=== PATIENT | male | born 1965 | race Caucasian/White ===

== ENCOUNTER 2017-06-23 18:22 | Emergency (ER) | payer BC ==
[~2017-06-23] VITALS: Ht 175.3 cm; Wt 120.2 kg
[2017-06-23] MEDS ORDERED: WELLBUTRIN XL300 MG PO (18:45)
[2017-06-23] MEDS ORDERED: ZANTAC 150MG T150 MG PO (18:45)
[2017-06-23] MEDS ORDERED: BENICAR20 MG PO (18:45)
[2017-06-23] MEDS ORDERED: JANUMET 50-1,01 EACH PO (18:46)
[2017-06-23] MEDS ORDERED: GLIPIZIDE 10 MG10 MG PO (18:46)
[2017-06-23] MEDS ORDERED: VITAMIN D3400 UNIT PO (18:46)
[2017-06-23] MEDS ORDERED: TRAZODONE HCL100 MG PO (18:46)
[2017-06-23] MEDS ORDERED: JARDIANCE10 MG PO (18:46)
[2017-06-23 19:46] VITALS: BP 133/79
== END 2017-06-23 19:47 | disposition home or self-care (01) ==
LOC: M.ERS 18:22
DX: S61.212A Laceration without foreign body of right middle finger without damage to nail, initial encounter (principal); W26.8XXA Contact with other sharp object(s), not elsewhere classified, initial encounter; Y93.89 Activity, other specified; Y92.89 Other specified places as the place of occurrence of the external cause; Y99.8 Other external cause status; E11.9 Type 2 diabetes mellitus without complications; I10 Essential (primary) hypertension; E78.5 Hyperlipidemia, unspecified

== ENCOUNTER 2018-11-05 10:14 | Emergency (ER) | payer BC, OTHER ==
[~2018-11-05] VITALS: Ht 175.2 cm; Wt 120.2 kg
[~2018-11-05 10:14] MED LIST: BENICAR20 MG PO; GLIPIZIDE 10 MG10 MG PO; JANUMET 50-1,01 EACH PO; JARDIANCE10 MG PO; TRAZODONE HCL100 MG PO; VITAMIN D3400 UNIT PO; WELLBUTRIN XL300 MG PO; ZANTAC 150MG T150 MG PO
[2018-11-05 11:27] VITALS: BP 142/79
== END 2018-11-05 11:28 | disposition home or self-care (01) ==
LOC: M.ERS 10:14
DX: S92.515A Nondisplaced fracture of proximal phalanx of left lesser toe(s), initial encounter for closed fracture (principal); E11.9 Type 2 diabetes mellitus without complications; I10 Essential (primary) hypertension; E78.5 Hyperlipidemia, unspecified; W22.8XXA Striking against or struck by other objects, initial encounter; Y93.89 Activity, other specified; Y92.89 Other specified places as the place of occurrence of the external cause; Y99.8 Other external cause status

== ENCOUNTER 2020-01-11 16:54 | Emergency (ER) | payer BC, OTHER ==
[~2020-01-11] VITALS: Ht 175.3 cm; Wt 120.2 kg
[2020-01-11] MEDS ORDERED: BUSPIRONE HCL10 MG PO (17:05)
[2020-01-11 18:25] LABS: ABSOLUTE BASOPHILS 0.1 thou/uL (0.0-0.2); ABSOLUTE EOSINOPHILS 0.2 thou/uL (0.0-0.7); ABSOLUTE LYMPHOCYTES 2.5 thou/uL (0.8-5.3); ABSOLUTE MONOCYTES 0.6 thou/uL (0.0-1.2); ABSOLUTE NEUTROPHILS 4.4 thou/uL (1.6-8.1); BASOPHILS 1.1 %; EOSINOPHILS 2.9 %; HEMATOCRIT 44.3 % (42.0-52.0); HEMOGLOBIN 15.5 gm/dL (14.0-18.0); LYMPHOCYTES 32.1 %; MCHC 34.9 g/dL (28.0-37.0); MCV 88.9 fL (80.0-100.0); MONOCYTES 7.4 %; NUCLEATED RBCS 0 /100WBC; PLATELET COUNT* 315 thou/uL (150-400); POLYS 56.5 %; RBC 4.99 mil/uL (4.50-6.00); RDW-CV 13.3 % (10.5-14.5); WBC 7.7 thou/uL (4.0-11.0)
[2020-01-11 18:34] LABS: CALCIUM 8.4 mg/dL (8.5-10.1)
[2020-01-11 18:38] LABS: APTT 24.3 Seconds (25.0-31.3)
[2020-01-11 18:39] LABS: ALBUMIN 3.7 g/dL (3.4-5.0); TOTAL BILIRUBIN 0.3 mg/dL (<0.1-1.0); TOTAL PROTEIN 7.4 g/dL (6.4-8.2)
[2020-01-11 19:33] VITALS: BP 147/89
== END 2020-01-11 19:33 | disposition home or self-care (01) ==
LOC: M.ERS 16:54
PROVIDERS: Personal Emergency Response Attendant
DX: S40.022A Contusion of left upper arm, initial encounter (principal); I10 Essential (primary) hypertension; E11.9 Type 2 diabetes mellitus without complications; E78.5 Hyperlipidemia, unspecified; X58.XXXA Exposure to other specified factors, initial encounter; Y93.64 Activity, baseball; Y92.89 Other specified places as the place of occurrence of the external cause; Y99.8 Other external cause status